=== PATIENT | male | born 1990 | race Caucasian/White ===

== ENCOUNTER 2016-11-11 21:58 | Emergency (ER) | payer OTHER ==
[2016-11-11 23:15] LABS: BASOPHIL 0.1 % (0-2); EOSINOPHIL 0.1 % (0-5); HCT 46.7 % (42.0-52.0); HGB 15.8 g/dl (13.2-18.0); MCH 30.7 pg (25.0-31.0); MCHC 33.8 g/dL (32.0-36.0); MCV 90.7 fL (78.0-100.0); MPV 10.9 fL (6.0-9.5); NEUTROPHIL 77.8 % (41-80); PLT 230 K/uL (150-400); RBC 5.15 M/uL (4.70-6.00); RDW 13.2 % (11.5-14.0); WBC 9.9 K/uL (4.0-10.5)
[2016-11-11 23:32] LABS: BILIRUBIN - TOTAL 4.2 mg/dL (0.1-1.0); CREATININE 0.8 mg/dL (0.7-1.2); GLOBULIN (CALCULATION) 2.4 g/dL (2.2-4.2); POTASSIUM 4.1 mmol/L (3.5-5.1); TOTAL PROTEIN 7.4 g/dL (6.4-8.3)
== END 2016-11-12 02:15 | disposition home or self-care (01) ==
LOC: FER 21:58
PROVIDERS: Emergency Medicine Emergency Medical Services
DX: E86.0 Dehydration (principal); K13.0 Diseases of lips; E80.7 Disorder of bilirubin metabolism, unspecified; Z88.1 Allergy status to other antibiotic agents; F17.210 Nicotine dependence, cigarettes, uncomplicated
CPT/HCPCS: 36415; 80053; 83605; 85025; 87040; 99284